=== PATIENT | male | born 1995 | race Caucasian/White ===

== ENCOUNTER 2016-10-23 07:22 | Emergency (ER) | payer OTHER ==
[~2016-10-23] VITALS: Ht 167.6 cm; Wt 67.1 kg
[2016-10-23 07:25] VITALS: TEMP 36.8; Ht 167.6 cm; Wt 67.1 kg
[2016-10-23] MEDS ORDERED: FLUTICASONE PROPIONATE NA SPR 16 GM BTL ONE (07:44)
[2016-10-23] MEDS ORDERED: GUAIFENESIN 600 MG TABCR PO ONE (07:50)
--- NOTE | 2016-10-23 08:01 | EMERGENCY ROOM VISIT NOTE ---
History First contact with patient: 07:30 Chief Complaint: FLU LIKE SX Stated Complaint: SORE THROAT,COUGH,RUNNY NOSE History of Present Illness The patient is a 21 year old male who presents to the Emergency Room with complaints of URI symptoms. He presents today with 1 week of cough. The cough is only occasionally productive of small amounts of green sputum. He denies shortness of breath or wheezing. He also has had nasal congestion for 1 week with productive clear/yellow sputum. He denies sinus pain or tenderness. Today he developed a sore throat. He describes it as a "peachy" pain rated 5/ 10. It is associated with dysphagia. He denies ear pressure, hearing changes, tinnitus or vertigo. He denies fevers, chills or nightsweats. His appetite has been slightly reduced. He is urinating and having bowel movements, without difficulty. He does not have a PCP and came to the ED as he did not know where to go. Review of Systems A 10 point review of systems was negative unless stated above. Past Medical/Surgical History Medical Problems: (1) H/O gonorrhea History of Lyme arthritis in 2011; require left knee debridement Family History No family history per patient Social History Smoking Status: Never Smoker Smokeless Tobacco Use: No Alcohol Use: none Drug Use: none Marital Status: in relationship Housing Status: lives with significant other Occupation Status: employed Current/Historical Medications Scheduled Guaifenesin La (Guaifenesin Er), 600 MG PO Q12H Allergies Coded Allergies: Vancomycin (Verified Adverse Reaction, Intermediate, MEHRAN SYNDROME, 10/23) MEHRAN OCCURRED WHILE INFUSING AT SLOW RATE No Known Allergies (Verified , NONE, 07/04/14) Physical Exam Vital Signs Date Time Temp Pulse Resp B/P Pulse Ox O2 Delivery O2 Flow Rate FiO2 10/23/16 08:52 66 18 121/76 99 10/23/16 07:25 36.8 72 16 135/83 99 Room Air Pain Rating (0-10): 5 Physical Exam Constitutional: Vital signs as above were reviewed. Eyes: Pupils equal, round, and reactive to light. Extraocular muscles are intact. No proptosis. No photophobia. ENT: Mucous membranes are moist. Oropharynx is clear. No sinus tenderness. TMs are clear bilaterally. Cardiovascular: Heart with a regular rate and rhythm. Pulses are palpable and symmetric in all 4 extremities. No pedal edema appreciated. Respiratory: Lungs clear to auscultation bilaterally. No wheezes, rales, or rhonchi appreciated. No accessory muscle use. No retractions. No increased work of breathing. GI: Abdomen soft, nontender, nondistended. Normal active bowel sounds. No abdominal hernias appreciated. No rebound. No guarding. : No CVA tenderness appreciated. Musculoskeletal: No midline cervical or vertebral tenderness. No gross deformities. No bony tenderness. No calf swelling or tenderness. Integumentary: Warm, dry, no rashes appreciated. Neurological: Patient awake, alert, and oriented x 3. Cranial nerves two through 12 grossly intact. Motor 5 out of 5 strength bilateral upper and lower extremities. Lymph: No cervical lymphadenopathy appreciated. Medical Decision & Procedures ER Provider Diagnostic Interpretation: CHEST 2 VIEWS ROUTINE CLINICAL HISTORY: Cough. Suspected pneumonia. COMPARISON STUDY: No previous studies for comparison. FINDINGS: The cardiac and mediastinal contours are normal. There is no evidence of focal pulmonary consolidation. There is no evidence of failure. No pleural effusions are visualized.[ IMPRESSION: No active disease in the chest. Electronically signed by: Salvador Lugo M.D. 10/23/2016 8:09 AM Dictated Date/Time: 10/23/2016 8:09 AM Laboratory Results Medications Administered Medications (Trade) Dose Ordered Sig/Rafi Route Start Time Stop Time Status Last Admin Dose Admin Fluticasone Propionate (Flonase Nasal Hye) 2 sprays 0744 ONCE NA 10/23/16 07:44 10/23/16 07:47 DC 10/23/16 07:58 2 SPRAYS Guaifenesin (Mucinex Contr Rel Tab) 600 mg Q12 ONCE PO 10/23/16 07:50 10/23/16 07:51 DC 10/23/16 07:57 600 MG ED Course 07:30 - patient seen and assessed by nh 2 view CXR Rapid strep with culture Flonase and Mucinex ordered for patient 07:50 - Precepted case with Dr. Aparicio 08: 15 - CXR reviewed; no acute findings in the chest. 08:30 - Discussed findings with patient and impression of viral URI. Recommend discharge with supportive care; patient agrees to plan 08:45 - Patient discharge paperwork completed Patient discharged in stable condition. Medical Decision Patient has coughing with URI symptoms. Differential diagnosis includes, Pneumonia, Bronchitis, Viral URI, Sinusitis, GAS. Patient appears well on arrival without any abnormalities in vital signs. Rapid strep was negative. Follow-up culture is pending. CXR was negative ruling out PNA at this time Clinical examination was unremarkable for findings consistent with asthma (no wheezing) or sinusitis (no facial pain, no nasal purulence). Presentation is consistent with viral URI. Supportive treatment only is indicated. Patient to be discharged with Flonase and Mucinex. He does not have a PCP. I have offered to see him in the office for follow-up if symptoms fail to improve. Patient was discharged in stable condition. Impression Primary Impression: Viral upper respiratory tract infection Ruled Out: Pneumonia, Strep throat Departure Information Dispostion Home / Self-Care Condition GOOD Prescriptions Guaifenesin La (Guaifenesin Er) 600 Mg Tabcr 600 MG PO Q12H for 7 Days, #14 TAB Prov: Tal Santa MD 10/23/16 Referrals No Doctor, Assigned (PCP) Patient Instructions My [facility] Additional Instructions You came to the ED for coughing and sore throat. We examined you and it was fortunately completely normal. We checked you for Strep Throat and it was negative. We will follow-up with a culture result but this takes a few days to come back. We also checked a chest x-ray which was negative. You most likely have a viral upper respiratory tract infection. Antibiotics do not have any effect on these types of infection and supportive treatments are the most helpful. These include: - Staying hydrated - Taking Tylenol or Motrin for fever or discomfort. - To treat you sore throat, you should also do warm salt water gargles twice daily. Stop taking Afrin at this time. You will be given a new nasal spray called Flonase to help with your nasal congestion. Take this twice daily for 7 days. You also noted that you do not have a family doctor. You were seen by Dr. Tal Santa, who works in primary care and will gladly see you in the office. The contact to his practice is: [facility] [address], [address] [facility] [address] If your symptoms fail to improve, acutely worsen, please seek medical attention immediately by either calling your primary care provider or going to your nearest emergency department. Otherwise, please see your primary care provider in 3-5 days to ensure that your symptoms continue to improve. It was a pleasure to be involved in your care and we wish you all the best.
--- NOTE | 2016-10-23 08:11 | DIAGNOSTIC IMAGING REPORT ---
CHEST 2 VIEWS ROUTINE CLINICAL HISTORY: Cough. Suspected pneumonia. COMPARISON STUDY: No previous studies for comparison. FINDINGS: The cardiac and mediastinal contours are normal. There is no evidence of focal pulmonary consolidation. There is no evidence of failure. No pleural effusions are visualized.[ IMPRESSION: No active disease in the chest. Electronically signed by: Salvador Lugo M.D. 10/23/2016 8:09 AM Dictated Date/Time: 10/23/2016 8:09 AM
[2016-10-23] MEDS ORDERED: GUAI1TAB75 PO (08:38)
[2016-10-23 08:52] VITALS: BP 121/76; PULSE 66; O2SAT 99
--- NOTE | 2016-10-23 08:55 | EMERGENCY ROOM VISIT NOTE ---
History Report prepared by Sergioibkane: Arely Cervantes Under the Supervision of: Dr. Chris Arevalo D.O. First contact with patient: 07:30 Chief Complaint: FLU LIKE SX Stated Complaint: SORE THROAT,COUGH,RUNNY NOSE History of Present Illness The patient is a 21 year old male who presents to the Emergency Room with complaints of a persistent cough for the past 1 week. He states the cough is intermittently productive. He has tried taking NyQuil and DayQuil, with minimal relief. Two days ago, he started experiencing a sore throat and clear rhinorrhea. He rates his discomfort as a 5/10. He denies any fevers, chills or night-sweats. He has experienced a mildly decreased appetite, but denies any nausea, vomiting or diarrhea. The patient reports he doesnt have a primary care physician, so he came to the ED for treatment. Source of History: patient Onset: 1 week [employer]MICAL [employer] Position: chest Timing: other (persistent) Modifying Factors (Relieving): other (DayQuil, NyQuil) Associated Symptoms: + sorethroat, No chills, No diaphoresis, No diarrhea, No fevers, No nausea, No vomiting Review of Systems See HPI for pertinent positives & negatives. A total of 10 systems reviewed and were otherwise negative. Past Medical & Surgical Medical Problems: (1) H/O gonorrhea Social History Smoking Status: Never Smoker Alcohol Use: none Drug Use: none Marital Status: in relationship Housing Status: lives with significant other Occupation Status: employed Current/Historical Medications Scheduled Guaifenesin La (Guaifenesin Er), 600 MG PO Q12H Allergies Coded Allergies: Vancomycin (Verified Adverse Reaction, Intermediate, MEHRAN SYNDROME, 10/23) MEHRAN OCCURRED WHILE INFUSING AT SLOW RATE No Known Allergies (Verified , NONE, 07/04/14) Physical Exam Vital Signs Date Time Temp Pulse Resp B/P Pulse Ox O2 Delivery O2 Flow Rate FiO2 10/23/16 08:52 66 18 121/76 99 10/23/16 07:25 36.8 72 16 135/83 99 Room Air Pain Rating (0-10): 5 Medical Decision & Procedures ER Provider Diagnostic Interpretation: This X-Ray was reviewed and interpreted by myself and the radiologist. CHEST 2 VIEWS ROUTINE IMPRESSION: No active disease in the chest. Electronically signed by: Salvador Lugo M.D. 10/23/2016 8:09 AM Medications Administered Medications (Trade) Dose Ordered Sig/Rafi Route Start Time Stop Time Status Last Admin Dose Admin Fluticasone Propionate (Flonase Nasal Walker) 2 sprays 0744 ONCE NA 10/23/16 07:44 10/23/16 07:47 DC 10/23/16 07:58 2 SPRAYS Guaifenesin (Mucinex Contr Rel Tab) 600 mg Q12 ONCE PO 10/23/16 07:50 10/23/16 07:51 DC 10/23/16 07:57 600 MG ED Course 0744: Flonase Nasal Walker 2 sprays NA. 0750: Guaifenesin 600 mg PO. 0812: Previous medical records were reviewed. The patient was evaluated in room A4B. A complete history and physical examination was performed. Medical Decision This is a 21-year-old male who presents to the ED with a chief complaint of upper respiratory symptoms. Details above. The patient was seen in conjunction with the resident. Chest x-ray did not show acute disease. Strep test was negative. The patient's symptoms are felt to be viral in origin. He is felt to be stable for discharge and outpatient follow-up. Impression Primary Impression: Viral upper respiratory tract infection Scribe Attestation The scribe's documentation has been prepared under my direction and personally reviewed by me in its entirety. I confirm that the note above accurately reflects all work, treatment, procedures, and medical decision making performed by me. Departure Information Prescriptions Guaifenesin La (Guaifenesin Er) 600 Mg Tabcr 600 MG PO Q12H for 7 Days, #14 TAB Prov: Tal Santa MD 10/23/16 Referrals No Doctor, Assigned (PCP) Patient Instructions My [facility]
[2016-10-23] MEDS ORDERED: FLUTICASONE PROPIONATE NA SPR 16 GM BTL SCH (09:00)
== END 2016-10-23 08:53 | disposition home or self-care (01) ==
LOC: C.EDB 07:23 → C.EDA 08:53
DX: J18.9 Pneumonia, unspecified organism (principal); J02.0 Streptococcal pharyngitis

== ENCOUNTER 2017-12-13 11:54 | Emergency (ER) | payer OTHER ==
[~2017-12-13] VITALS: Ht 167.6 cm; Wt 69.9 kg
[2017-12-13 11:57] VITALS: TEMP 36.8; Ht 167.6 cm; Wt 69.9 kg
[2017-12-13] MEDS ORDERED: ONDANSETRON INJ 2 MG/ML 2 ML VIAL IV STA (12:09)
[2017-12-13] MEDS ORDERED: GI COCKTAIL PO STA (12:09)
[2017-12-13] MEDS ORDERED: SODIUM CHLORIDE 0.9% 1000ML 1,000 ML IV STA (12:09)
[2017-12-13] MEDS ORDERED: FAMOTIDINE 20 MG TAB PO ONE (12:15)
[2017-12-13 12:37] LABS: BASO % 0.2 %; BASO ABS # 0.01 K/uL (0-0.2); EOS % 0.3 %; EOS ABS # 0.02 K/uL (0-0.5); HEMATOCRIT 40.9 % (42-52); HEMOGLOBIN 14.1 g/dL (14.0-18.0); IG# 0.01 K/uL (0.00-0.02); MEAN CELL VOLUME 78.2 fL (80-100); MEAN CORPUSCULAR HGB CONC 34.5 g/dl (32-36); MEAN PLATELET VOLUME 9.9 fL (7.4-10.4); MONO % 7.4 %; MONO ABS # 0.43 K/uL (0.11-0.59); NEUT % 72.9 %; NEUT ABS # 4.23 K/uL (1.4-6.5); PLATELET COUNT 221 K/uL (130-400); RED CELL DISTRIBUTION WIDTH CV 13.5 % (11.5-14.5); RED CELL DISTRIBUTION WIDTH SD 38.2 fL (36.4-46.3)
[2017-12-13] MEDS ORDERED: ALUMINUM/MAGNESIUM SUSP 30 ML UDC ONE (12:46)
[2017-12-13] MEDS ORDERED: LIDOCAINE HCL 2% VISC SOLN 20 ML UDC ONE (12:46)
[2017-12-13 12:53] LABS: CALCIUM 9.1 mg/dl (8.5-10.1); CREATININE 0.87 mg/dl (0.60-1.40); POTASSIUM 3.3 mmol/L (3.5-5.1)
--- NOTE | 2017-12-13 12:59 | EMERGENCY ROOM VISIT NOTE ---
History Report prepared by Bettina: Ayo Webster Under the Supervision of: Dr. Jimbo Deras M.D. First contact with patient: 11:59 Chief Complaint: FLU LIKE SX Stated Complaint: HARD TO BREATHE, PAIN IN UPPER STOMACH, FEVER History of Present Illness The patient is a 22 year old white male with a past medical history of gonorrhea , who presents to the Emergency Room with complaints of epigastric abdominal pains that began this morning, several hours ago. The patient states that the pain "comes and goes," and he describes the pain as sharp. He has noticed that laying down improves the pain and sitting upright seems to worsen the symptoms. The patient also mentioned that he has had some breathing difficulties as well. He has no history of blood clots. The patient did have a bowel movement this morning that was "runny." His symptoms started 1 week ago when he got a headache and began to vomit. He also had a fever of 102.0 degrees. The patient mentioned an episode that occurred today, a short time ago when he got "flushed " and felt like he was going to pass out. Source of History: patient Onset: Several hours ago Position: abdomen (Epigastric) Quality: sharp Timing: other (comes and goes) Modifying Factors (Worsening): other (Sitting up) Modifying Factors (Relieving): other (Laying flat) Associated Symptoms: + fevers, + headache Review of Systems See HPI for pertinent positives and negatives. A total of ten systems were reviewed and were otherwise negative. Past Medical & Surgical Medical Problems: (1) H/O gonorrhea Family History Patient reports no known family medical history. Social History Smoking Status: Never Smoker Alcohol Use: none Drug Use: none Marital Status: in relationship Housing Status: lives with significant other Occupation Status: employed Current/Historical Medications No Active Prescriptions or Reported Meds Allergies Coded Allergies: Vancomycin (Verified Adverse Reaction, Intermediate, MEHRAN SYNDROME, 12/13) MEHRAN OCCURRED WHILE INFUSING AT SLOW RATE No Known Allergies (Verified , NONE, 07/04/14) Physical Exam Vital Signs Date Time Temp Pulse Resp B/P (MAP) Pulse Ox O2 Delivery O2 Flow Rate FiO2 12/13/17 14:06 84 16 128/60 96 Room Air 12/13/17 11:57 36.8 87 18 147/83 99 Room Air Physical Exam GENERAL: Awake, alert, well-appearing, NAD HENT: Normocephalic, atraumatic. EYES: Normal conjunctiva. Sclera non-icteric. NECK: Supple. No nuchal rigidity. FROM. RESPIRATORY: CTAB, no rhonchi, wheezing, crackles CARDIAC: RRR, no MRG ABDOMEN: Soft, NTND, BS+ MSK: No chest wall TTP, no LE edema NEURO: GCS 15, CN 2-12 intact, moves all 4s on command SKIN: No rash or jaundice noted. Medical Decision & Procedures ER Provider Diagnostic Interpretation: Radiology results as stated below per my review and radiologist interpretation: ABDOMEN 2VIEW W/PA CHEST RTN CLINICAL HISTORY: ABDOMINAL PAIN/GI pain COMPARISON STUDY: 10/23/2016 FINDINGS: The soft tissues, psoas shadows, renal outlines and intestinal gas pattern appear normal. There is no evidence for bowel obstruction. There is no evidence for free intraperitoneal air. No abnormal abdominal calcifications are seen. A frontal view of the chest was performed and is unremarkable. IMPRESSION: Normal study. The above report was generated using voice recognition software. It may contain grammatical, syntax or spelling errors. Electronically signed by: Jose Luis Walker M.D. 12/13/2017 1:00 PM Dictated Date/Time: 12/13/2017 12:59 PM Laboratory Results 12/13/17 12:25 Red Blood Count 5.23, Mean Corpuscular Volume 78.2, Mean Corpuscular Hemoglobin 27.0, Mean Corpuscular Hemoglobin Concent 34.5, Mean Platelet Volume 9.9, Neutrophils (%) (Auto) 72.9, Lymphocytes (%) (Auto) 19.0, Monocytes (%) (Auto) 7.4, Eosinophils (%) (Auto) 0.3, Basophils (%) (Auto) 0.2, Neutrophils # (Auto) 4.23, Lymphocytes # (Auto) 1.10, Monocytes # (Auto) 0.43, Eosinophils # (Auto) 0.02, Basophils # (Auto) 0.01 12/13/17 12:25 Test 12/13/17 12:25 12/13/17 13:00 White Blood Count 5.80 K/uL (4.8-10.8) Red Blood Count 5.23 M/uL (4.7-6.1) Hemoglobin 14.1 g/dL (14.0-18.0) Hematocrit 40.9 % (42-52) Mean Corpuscular Volume 78.2 fL (80-100) Mean Corpuscular Hemoglobin 27.0 pg (25-34) Mean Corpuscular Hemoglobin Concent 34.5 g/dl (32-36) Platelet Count 221 K/uL (130-400) Mean Platelet Volume 9.9 fL (7.4-10.4) Neutrophils (%) (Auto) 72.9 % Lymphocytes (%) (Auto) 19.0 % Monocytes (%) (Auto) 7.4 % Eosinophils (%) (Auto) 0.3 % Basophils (%) (Auto) 0.2 % Neutrophils # (Auto) 4.23 K/uL (1.4-6.5) Lymphocytes # (Auto) 1.10 K/uL (1.2-3.4) Monocytes # (Auto) 0.43 K/uL (0.11-0.59) Eosinophils # (Auto) 0.02 K/uL (0-0.5) Basophils # (Auto) 0.01 K/uL (0-0.2) RDW Standard Deviation 38.2 fL (36.4-46.3) RDW Coefficient of Variation 13.5 % (11.5-14.5) Immature Granulocyte % (Auto) 0.2 % Immature Granulocyte # (Auto) 0.01 K/uL (0.00-0.02) Anion Gap 8.0 mmol/L (3-11) Est Creatinine Clear Calc Drug Dose 118.1 ml/min Estimated GFR () 140.0 Estimated GFR (Non- 120.8 BUN/Creatinine Ratio 19.9 (10-20) Calcium Level 9.1 mg/dl (8.5-10.1) Total Bilirubin 0.5 mg/dl (0.2-1) Direct Bilirubin 0.1 mg/dl (0-0.2) Aspartate Amino Transf (AST/SGOT) 19 U/L (15-37) Alanine Aminotransferase (ALT/SGPT) 29 U/L (12-78) Alkaline Phosphatase 90 U/L (45-117) Total Protein 8.0 gm/dl (6.4-8.2) Albumin 4.0 gm/dl (3.4-5.0) Lipase 103 U/L (73-393) Influenza Type A Antigen Neg for Influ A (NEG) Influenza Type B Antigen Neg for Influ B (NEG) Laboratory results reviewed by me Medications Administered Medications (Trade) Dose Ordered Sig/Rafi Route Start Time Stop Time Status Last Admin Dose Admin Sodium Chloride 1,000 ml @ 999 mls/hr Q1H1M STAT IV 12/13/17 12:09 12/13/17 13:09 DC 12/13/17 12:35 999 MLS/HR Ondansetron HCl (Zofran Inj) 4 mg NOW STAT IV 12/13/17 12:09 12/13/17 12:11 DC 12/13/17 12:35 4 MG Miscellaneous Medication (Gi Cocktail) 24 ml ONE STAT PO 12/13/17 12:09 12/13/17 12:11 DC 12/13/17 12:51 24 ML Famotidine (Pepcid Tab) 20 mg NOW ONCE PO 12/13/17 12:15 12/13/17 12:16 DC 12/13/17 12:35 20 MG ECG Per My Interpretation Rate (beats per minute): 91 Rhythm: normal sinus Findings: T-wave inversion (Inferior), other (Normal intervals, no STS) ED Course 1205: The patient was evaluated in room B9. A complete history and physical exam was performed. 1454: I reevaluated the patient. Discussed results and discharge instructions: he verbalized understanding and agreement. The patient is ready for discharge. Medical Decision The patient is a 22 year old white male with a past medical history of gonorrhea , who presents to the Emergency Room with complaints of epigastric abdominal pains that began this morning, several hours ago. Differential diagnosis: Etiologies such as viral syndrome, otitis, pharyngitis, pneumonia, influenza, meningitis, urinary tract infection, sepsis, bacteremia, as well as others were entertained. Patient was seen and evaluated at the bedside. Patient does complain of some fever that has been intermittent and has resolved with Tylenol. Patient does complain of some epigastric discomfort. Patient denies any recent trauma or surgeries. Patient has had a recent bowel movement. Patient does have some epigastric discomfort but is not peritoneal Dyk. Patient denies any alcohol or drug abuse. Patient is a non-smoker. 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 Patient did have blood work completed. Patient did receive medications to help with symptom control. Upon reassessment the patient is feeling improved. Patient had unremarkable blood work. Chest x-ray was clear. Flu was negative. Patient likely is suffering from a viral illness or even a gastritis. Patient was deemed suitable for outpatient follow-up and treatment at this time. The patient was able to tolerate p.o. again looks very well and has stable vital signs I believe is suitable for outpatient treatment. Patient was given strict follow-up, discharge, and return precautions. All questions were answered. Patient was deemed suitable for outpatient follow-up at this time. Patient agreed with the plan of care and was safely discharged home. Medication Reconcilliation Current Medication List: was personally reviewed by me Blood Pressure Screening Patient's blood pressure: Elevated blood pressure Impression Primary Impression: Influenza-like symptoms Additional Impressions: Hypokalemia Gastritis Scribe Attestation The scribe's documentation has been prepared under my direction and personally reviewed by me in its entirety. I confirm that the note above accurately reflects all work, treatment, procedures, and medical decision making performed by me. Departure Information Dispostion Home / Self-Care Prescriptions No Active Prescriptions or Reported Meds Referrals No Doctor, Assigned (PCP) Patient Instructions ED Fever Control, ED Gastritis, [facility] Additional Instructions Please return to the emergency department if you have worsening or recurrent symptoms not amenable to at-home treatment. Please call for a follow-up appointment with her primary care physician. Please take your medications as prescribed. If you have other concerns and/or complaints please feel free to also call your primary care physician's office or return the ED for further evaluation, management, and treatment. You may take 600 mg Ibuprofen every 6 hours as needed for pain with food for no more than 2 consecutive days. You may take tylenol 1000 mg every 6 hours as needed for pain. You may take motrin and tylenol separately or at the same time. Take your medications as prescribed. Continue liberal clear liquid hydration. You should advance her diet as tolerated. You have been examined and treated today on an emergency basis only. This is not a substitute for, or an effort to provide, complete comprehensive medical care. It is impossible to recognize and treat all injuries or illnesses in a single emergency department visit. It is therefore important that you follow up closely with [facility], your PCP, and/or your specialist(s). Call as soon as possible for an appointment. Thank you for your time and consideration. I look forward to speaking with you again soon. Please don't hesitate to call us if you have any questions. Problem Qualifiers Additional Impressions: Gastritis Gastritis type: unspecified gastritis Chronicity: unspecified Gastritis bleeding: presence of bleeding unspecified Qualified Codes: K29.70 - Gastritis, unspecified, without bleeding
--- NOTE | 2017-12-13 13:02 | DIAGNOSTIC IMAGING REPORT ---
ABDOMEN 2VIEW W/PA CHEST RTN CLINICAL HISTORY: ABDOMINAL PAIN/GI pain COMPARISON STUDY: 10/23/2016 FINDINGS: The soft tissues, psoas shadows, renal outlines and intestinal gas pattern appear normal. There is no evidence for bowel obstruction. There is no evidence for free intraperitoneal air. No abnormal abdominal calcifications are seen. A frontal view of the chest was performed and is unremarkable. IMPRESSION: Normal study. The above report was generated using voice recognition software. It may contain grammatical, syntax or spelling errors. Electronically signed by: Jose Luis Walker M.D. 12/13/2017 1:00 PM Dictated Date/Time: 12/13/2017 12:59 PM
[2017-12-13 14:24] LABS: INFLUENZA B ANTIGEN Neg for Influ B (NEG)
[2017-12-13 15:04] VITALS: BP 118/63; PULSE 72; O2SAT 98
== END 2017-12-13 15:05 | disposition home or self-care (01) ==
LOC: C.EDB 11:55
DX: R50.9 Fever, unspecified (principal); R51 Headache; E87.6 Hypokalemia; K29.70 Gastritis, unspecified, without bleeding; Z86.19 Personal history of other infectious and parasitic diseases; Z88.1 Allergy status to other antibiotic agents